=== PATIENT | male | born 1970 | race Caucasian/White ===

== ENCOUNTER 2018-05-25 05:03 | Inpatient (IN) | payer OTHER, MEDICAID ==
[~2018-05-25] VITALS: Ht 157.5 cm; Wt 72.6 kg
[2018-05-25] MEDS ORDERED: MORPHINE SULFATE 4 MG/ML CPJ (NOT FOR IM USE) IV STA (06:35)
[2018-05-25] MEDS ORDERED: ONDANSETRON HCL 4MG/2ML INJ IV ONE (07:00)
[2018-05-25 07:12] LABS: BASOPHILS % 0.8 % (0.0-2.0); HEMATOCRIT. 32.1 % (42.0-52.0); HEMOGLOBIN. 10.6 g/dL (14.0-18.0); LYMPHOCYTES % 23.8 % (20.0-50.0); MEAN CORPUSCULAR HEMOGLOBIN 28.8 pg (28.0-32.0); MEAN CORPUSCULAR VOLUME 87.4 fL (80.0-94.0); MONOCYTES % 9.6 % (2.0-8.0); NEUTROPHILS % 62.8 % (40.0-76.0); PLATELET 102 x1000/uL (130-400); RED BLOOD CELL COUNT 3.68 mill/uL (4.7-6.1); RED CELL DISTRIBUTION WIDTH 18.8 % (11.6-14.6)
[2018-05-25 07:17] LABS: INR 1.3; PROTHROMBIN TIME 12.8 sec (9.6-11.0)
[2018-05-25 07:24] LABS: CHLORIDE 108 mEq/L (98-107)
[2018-05-25 07:25] LABS: CLARITY URINE CLOUDY (CLEAR); COLOR URINE ORANGE (YELLOW); KETONES URINE TRACE (NEGATIVE); LEUKOCYTE ESTERASE URINE 1+ (NEGATIVE); NITRITE URINE POSITIVE (NEGATIVE); OCCULT BLOOD URINE NEGATIVE (NEGATIVE); PROTEIN URINE 1+ (NEGATIVE); SPECIFIC GRAVITY URINE 1.034 (1.005-1.030)
[2018-05-25 07:28] LABS: ETHANOL BLOOD < 10 mg/dL
[2018-05-25] MEDS ORDERED: CEFTRIAXONE 1 G PREMIX 50 ML IV ONE (07:45)
[2018-05-25] MEDS ORDERED: NA PHOS,M-B/NA PHOS,DI-BA ENEMA 118ML PR PRN (08:15)
[2018-05-25] MEDS ORDERED: DIPHENHYDRAMINE 50MG/ML VIAL IV PRN ×2 (08:15→18:45)
[2018-05-25] MEDS ORDERED: MAGNESIUM/ALUMINUM HYDROXIDE/SIMETHICONE 30ML UDC PO PRN ×2 (08:15→18:45)
[2018-05-25] MEDS ORDERED: ACETAMINOPHEN 325MG TABLET PO PRN ×2 (08:15→18:45)
[2018-05-25] MEDS ORDERED: CLONIDINE 0.1MG TABLET PO PRN ×2 (08:15→18:45)
[2018-05-25] MEDS ORDERED: ONDANSETRON HCL 4MG/2ML INJ IV PRN ×3 (08:15→18:45)
[2018-05-25] MEDS ORDERED: MORPHINE SULFATE 4 MG/ML CPJ (NOT FOR IM USE) IV PRN (08:15)
[2018-05-25] MEDS ORDERED: ACETAMINOPHEN 650MG SUPP PR PRN ×2 (08:15→18:45)
[2018-05-25] MEDS ORDERED: DOCUSATE SODIUM 100MG CAPSULE PO PRN (08:15)
[2018-05-25] MEDS ORDERED: LIDOCAINE HCL 1% 20ML VIAL (Pyxis) INJ ONE (08:17)
[2018-05-25] MEDS ORDERED: SODIUM BICARBONATE 4% (2.4MEQ) 5ML VIAL IV ONE (08:17)
[2018-05-25] MEDS: FUROSEMIDE 40MG/4ML VIAL IV SCH (13:50)
[2018-05-25] MEDS: THIAMINE HCL 100MG TABLET PO SCH (13:50)
[2018-05-25] MEDS: POTASSIUM CHLORIDE 20MEQ TABLET SR PO SCH (13:50)
[2018-05-25] MEDS ORDERED: CEFTRIAXONE 1 G PREMIX 50 ML IV SCH (14:00)
[2018-05-25] MEDS ORDERED: FOLIC ACID 1MG TABLET PO SCH (14:00)
[2018-05-25 14:25] LABS: *BENZODIAZEPINES SCREEN URINE NEGATIVE (NEGATIVE); *COCAINE SCREEN URINE NEGATIVE (NEGATIVE); METHADONE URINE SCREEN NEGATIVE (NEGATIVE); OPIATES URINE SCREEN NEGATIVE (NEGATIVE)
[2018-05-25 14:26] LABS: *AMPHETAMINES SCREEN URINE NEGATIVE (NEGATIVE); *BARBITURATES SCREEN URINE NEGATIVE (NEGATIVE); CANNABINOID URINE SCREEN NEGATIVE (NEGATIVE); PHENCYCLIDINE URINE SCREEN NEGATIVE (NEGATIVE)
[2018-05-25] MEDS ORDERED: ACETAMINOPHEN 650MG/20.3ML UDC GT PRN (18:45)
[2018-05-26] MEDS: SODIUM CHLORIDE 0.9% 1,000 ML IV SCH ×2 (03:26→11:11)
[2018-05-26 05:09] LABS: BASOPHILS % 0.8 % (0.0-2.0); HEMATOCRIT. 30.7 % (42.0-52.0); HEMOGLOBIN. 10.3 g/dL (14.0-18.0); LYMPHOCYTES % 16.2 % (20.0-50.0); MEAN CORPUSCULAR HEMOGLOBIN 29.2 pg (28.0-32.0); MEAN CORPUSCULAR VOLUME 87.5 fL (80.0-94.0); MEAN PLATELET VOLUME 8.8 fl (7.4-10.4); MONOCYTES % 10.4 % (2.0-8.0); NEUTROPHILS % 69.6 % (40.0-76.0); PLATELET 94 x1000/uL (130-400); RED BLOOD CELL COUNT 3.51 mill/uL (4.7-6.1); RED CELL DISTRIBUTION WIDTH 18.6 % (11.6-14.6)
[2018-05-26 05:16] LABS: CHLORIDE 109 mEq/L (98-107)
[2018-05-26 05:48] LABS: HDL CHOLESTEROL 53 mg/dL (40-59); LDL CHOLESTEROL 32 mg/dL (5-100)
[2018-05-26 08:00] VITALS: BP 99/70
[2018-05-26] MEDS: METOPROLOL TARTRATE 25MG TABLET PO SCH ×2 (09:00→21:00)
[2018-05-26] MEDS: FUROSEMIDE 40MG/4ML VIAL IV SCH (09:00)
[2018-05-26 10:08] VITALS: BP 99/67
[2018-05-26 12:00] VITALS: BP 100/61
[2018-05-26] MEDS: THIAMINE HCL 100MG TABLET PO SCH (12:14)
[2018-05-26] MEDS: POTASSIUM CHLORIDE 20MEQ TABLET SR PO SCH (13:15)
[2018-05-26] MEDS ORDERED: SODIUM CHLORIDE 0.9% INJ 3ML FLUSH IVF SCH (14:00)
[2018-05-26 16:01] VITALS: BP 95/56
[2018-05-26] MEDS ORDERED: LEVO500T2 MT (17:09)
[2018-05-26 20:00] VITALS: BP 102/61
[2018-05-26 21:44] VITALS: BP 102/61
[2018-05-27] MEDS ORDERED: CEFTRIAXONE 1 G PREMIX 50 ML IV SCH (03:00)
== END 2018-05-26 22:18 | disposition home or self-care (01) | DRG 280 ==
LOC: ER 05:03 → 6EST 07:55 → EDBEDREQTM 07:59 → EDBEDREQ 07:59 → ENRESERV 05-26 07:13
PROVIDERS: ADMIT Family Medicine; ATTEND Family Medicine
PROC: 0W9G3ZZ Drainage of Peritoneal Cavity, Percutaneous Approach (ICD-10-PCS; principal; 2018-05-25)
DX: K70.31 Alcoholic cirrhosis of liver with ascites (principal); D61.818 Other pancytopenia; E44.0 Moderate protein-calorie malnutrition; E11.9 Type 2 diabetes mellitus without complications; I10 Essential (primary) hypertension; K42.9 Umbilical hernia without obstruction or gangrene; D50.9 Iron deficiency anemia, unspecified; N39.0 Urinary tract infection, site not specified; Z68.29 Body mass index [BMI] 29.0-29.9, adult; Z71.41 Alcohol abuse counseling and surveillance of alcoholic; Z72.89 Other problems related to lifestyle
CPT/HCPCS: 36415; 49083; 80061; 80076; 80305; 80320; 82150; 82728; 83540; 83550; 88108; 88312; 93306; 96365; 96375; 99285; J0696; J1940; J2270; J2405; J3490; G0480

== ENCOUNTER 2018-07-30 09:40 | Emergency (ER) | payer MEDICAID ==
[~2018-07-30] VITALS: Ht 162.6 cm; Wt 60.0 kg
[~2018-07-30 09:40] MED LIST: LEVO500T2 MT
[2018-07-30 10:40] LABS: BASOPHILS % 0.4 % (0.0-2.0); EOSINOPHILS % 0.6 % (0.0-5.0); HEMATOCRIT. 34.2 % (42.0-52.0); HEMOGLOBIN. 11.4 g/dL (14.0-18.0); LYMPHOCYTES % 12.4 % (20.0-50.0); MEAN CORPUSCULAR HEMOGLOBIN 28.6 pg (28.0-32.0); MEAN CORPUSCULAR VOLUME 86.1 fL (80.0-94.0); MEAN PLATELET VOLUME 8.4 fl (7.4-10.4); MONOCYTES % 14.4 % (2.0-8.0); NEUTROPHILS % 72.2 % (40.0-76.0); PLATELET 127 x1000/uL (130-400); RED BLOOD CELL COUNT 3.97 mill/uL (4.7-6.1); RED CELL DISTRIBUTION WIDTH 17.2 % (11.6-14.6)
[2018-07-30 10:46] LABS: CHLORIDE 100 mEq/L (98-107)
[2018-07-30 10:47] LABS: INR 1.2; PROTHROMBIN TIME 12.5 sec (9.6-11.0)
[2018-07-30 10:50] LABS: ETHANOL BLOOD 99 mg/dL
[2018-07-30] MEDS ORDERED: LIDOCAINE HCL 1% 20ML VIAL (Pyxis) INJ ONE (11:15)
[2018-07-30] MEDS ORDERED: SODIUM BICARBONATE 4% (2.4MEQ) 5ML VIAL IV ONE (11:15)
[2018-07-30 14:58] VITALS: BP 119/67
== END 2018-07-30 15:01 | disposition home or self-care (01) ==
LOC: ER 09:40
DX: R18.8 Other ascites (principal); K74.60 Unspecified cirrhosis of liver; E87.1 Hypo-osmolality and hyponatremia; E11.9 Type 2 diabetes mellitus without complications; I10 Essential (primary) hypertension
CPT/HCPCS: 36415; 49083; 80053; 80320; 83690; 85025; 85610; 99285; J3490; Z7610; G0480

== ENCOUNTER 2018-08-15 09:01 | Emergency (ER) | payer MEDICAID ==
[~2018-08-15] VITALS: Ht 167.6 cm; Wt 74.0 kg
[2018-08-15 09:50] LABS: BASOPHILS % 1.3 % (0.0-2.0); EOSINOPHILS % 0.7 % (0.0-5.0); HEMATOCRIT. 32.2 % (42.0-52.0); HEMOGLOBIN. 10.9 g/dL (14.0-18.0); LYMPHOCYTES % 12.9 % (20.0-50.0); MEAN CORPUSCULAR HEMOGLOBIN 28.9 pg (28.0-32.0); MEAN CORPUSCULAR VOLUME 85.5 fL (80.0-94.0); MONOCYTES % 12.8 % (2.0-8.0); NEUTROPHILS % 72.3 % (40.0-76.0); PLATELET 118 x1000/uL (130-400); RED BLOOD CELL COUNT 3.77 mill/uL (4.7-6.1); RED CELL DISTRIBUTION WIDTH 17.7 % (11.6-14.6)
[2018-08-15 09:54] LABS: CHLORIDE 102 mEq/L (98-107)
[2018-08-15 09:55] LABS: INR 1.2; PROTHROMBIN TIME 12.2 sec (9.6-11.0)
[2018-08-15] MEDS ORDERED: SODIUM BICARBONATE 4% (2.4MEQ) 5ML VIAL IV ONE (10:23)
[2018-08-15] MEDS ORDERED: LIDOCAINE HCL 1% 20ML VIAL (Pyxis) INJ ONE (10:23)
[2018-08-15 14:50] VITALS: BP 110/66
== END 2018-08-15 15:03 | disposition home or self-care (01) ==
LOC: ER 09:01
DX: R18.8 Other ascites (principal); K76.9 Liver disease, unspecified; I10 Essential (primary) hypertension; E11.9 Type 2 diabetes mellitus without complications
CPT/HCPCS: 36415; 49083; 80053; 83690; 85025; 85610; 87070; 87205; 89050; 99285; J3490; Z7610

== ENCOUNTER 2018-09-08 16:18 | Emergency (ER) | payer MEDICAID | END 2018-09-08 19:24 | disposition left against medical advice (07) | LOC: ER 16:18 | DX: Z53.21 Procedure and treatment not carried out due to patient leaving prior to being seen by health care provider (principal) ==

== ENCOUNTER 2018-09-09 05:50 | Inpatient (IN) | payer OTHER, MEDICAID ==
[~2018-09-09] VITALS: Ht 160 cm; Wt 73.9 kg
[2018-09-09] MEDS ORDERED: FAMOTIDINE 20MG/2ML VIAL IV ONE (10:00)
[2018-09-09] MEDS ORDERED: MAGNESIUM/ALUMINUM HYDROXIDE/SIMETHICONE 30ML UDC PO ONE (10:00)
[2018-09-09] MEDS ORDERED: LIDOCAINE HCL 1% 20ML VIAL (Pyxis) INJ INJ STA (11:34)
[2018-09-09 12:16] LABS: BASOPHILS % 1.4 % (0.0-2.0); CHLORIDE 107 mEq/L (98-107); EOSINOPHILS % 0.8 % (0.0-5.0); HEMOGLOBIN. 11.1 g/dL (14.0-18.0); LYMPHOCYTES % 17.8 % (20.0-50.0); MEAN CORPUSCULAR HEMOGLOBIN 28.8 pg (28.0-32.0); MEAN CORPUSCULAR VOLUME 85.5 fL (80.0-94.0); MEAN PLATELET VOLUME 9.3 fl (7.4-10.4); MONOCYTES % 10.9 % (2.0-8.0); NEUTROPHILS % 69.1 % (40.0-76.0); PLATELET 94 x1000/uL (130-400); RED BLOOD CELL COUNT 3.86 mill/uL (4.7-6.1); RED CELL DISTRIBUTION WIDTH 18.3 % (11.6-14.6)
[2018-09-09 12:18] LABS: INR 1.3; PROTHROMBIN TIME 12.7 sec (9.6-11.0)
[2018-09-09] MEDS ORDERED: IOHEXOL-300 100 ML BOTTLE ONE (15:17)
[2018-09-09] MEDS ORDERED: ONDANSETRON HCL 4MG/2ML INJ IV PRN (16:00)
[2018-09-09] MEDS ORDERED: ACETAMINOPHEN 325MG TABLET PO PRN (16:00)
[2018-09-09] MEDS ORDERED: HYDROCODONE/ACETAMINOPHEN 5/325MG TABLET PO PRN (16:00)
[2018-09-09] MEDS ORDERED: SPIRONOLACTONE 50MG TABLET PO NR (16:08)
[2018-09-09] MEDS: KETOROLAC 30MG/ML VIAL IV PRN (16:22)
[2018-09-09 16:37] LABS: HEPATITIS B SURFACE ANTIGEN NEGATIVE
[2018-09-09 16:52] VITALS: BP 117/66
[2018-09-09 17:07] LABS: HEPATITIS A AB IGM NEGATIVE (NEGATIVE)
[2018-09-09 17:16] VITALS: BP 117/66
[2018-09-09 20:00] VITALS: BP 99/59
[2018-09-09] MEDS ORDERED: LORAZEPAM 2MG/ML CPJ IV PRN (20:15)
[2018-09-09] MEDS: FUROSEMIDE 40MG TABLET PO SCH (20:41)
[2018-09-10] VITALS: BP 107/65
[2018-09-10 04:00] VITALS: BP 106/66
[2018-09-10] MEDS: KETOROLAC 30MG/ML VIAL IV PRN (06:07)
[2018-09-10 07:03] LABS: BASOPHILS % 1.1 % (0.0-2.0); EOSINOPHILS % 1.8 % (0.0-5.0); HEMATOCRIT. 30.5 % (42.0-52.0); HEMOGLOBIN. 10.2 g/dL (14.0-18.0); LYMPHOCYTES % 19.8 % (20.0-50.0); MEAN CORPUSCULAR VOLUME 86.9 fL (80.0-94.0); MEAN PLATELET VOLUME 9.8 fl (7.4-10.4); MONOCYTES % 12.8 % (2.0-8.0); NEUTROPHILS % 64.5 % (40.0-76.0); PLATELET 89 x1000/uL (130-400); RED BLOOD CELL COUNT 3.51 mill/uL (4.7-6.1); RED CELL DISTRIBUTION WIDTH 18.9 % (11.6-14.6)
[2018-09-10 08:00] VITALS: BP 115/79
[2018-09-10 08:13] LABS: CHLORIDE 108 mEq/L (98-107)
[2018-09-10] MEDS: FUROSEMIDE 40MG TABLET PO SCH (08:27)
[2018-09-10] MEDS ORDERED: SODIUM BICARBONATE 4% (2.4MEQ) 5ML VIAL IV ONE (08:43)
[2018-09-10] MEDS ORDERED: LIDOCAINE HCL 1% 20ML VIAL (Pyxis) INJ ONE (08:43)
[2018-09-10] MEDS ORDERED: SPIRONOLACTONE 50MG TABLET PO SCH (09:00)
[2018-09-10 10:48] VITALS: BP 117/82
[2018-09-10 11:59] VITALS: BP 105/65
== END 2018-09-10 13:11 | disposition home or self-care (01) ==
LOC: ER 05:50 → EDBEDREQTM 14:14 → EDBEDREQ 14:14 → 6EST 16:01 → ENRESERV 16:01
PROVIDERS: ADMIT Internal Medicine; ATTEND Internal Medicine
PROC: 0W9G3ZZ Drainage of Peritoneal Cavity, Percutaneous Approach (ICD-10-PCS; principal; 2018-09-10)
DX: K74.60 Unspecified cirrhosis of liver (principal); E43 Unspecified severe protein-calorie malnutrition; D69.6 Thrombocytopenia, unspecified; I24.9 Acute ischemic heart disease, unspecified; K76.6 Portal hypertension; R16.1 Splenomegaly, not elsewhere classified; I85.10 Secondary esophageal varices without bleeding; K42.9 Umbilical hernia without obstruction or gangrene; F10.10 Alcohol abuse, uncomplicated; R18.8 Other ascites; D64.9 Anemia, unspecified; I86.4 Gastric varices; Z68.28 Body mass index [BMI] 28.0-28.9, adult; Z79.899 Other long term (current) drug therapy; Z71.41 Alcohol abuse counseling and surveillance of alcoholic
CPT/HCPCS: 36415; 49083; 74177; 80048; 84484; 86705; 86709; 86803; 87075; 87340; 93005; 93971; 96374; 99285; J1885; J3490; Q9967

== ENCOUNTER 2019-05-08 07:57 | Emergency (ER) | payer MEDICAID ==
[~2019-05-08] VITALS: Ht 162.6 cm; Wt 89.0 kg
[2019-05-08 08:44] LABS: BASOPHILS % 0.3 % (0.0-2.0); EOSINOPHILS % 2.5 % (0.0-5.0); HEMATOCRIT. 28.5 % (42.0-52.0); HEMOGLOBIN. 9.4 g/dL (14.0-18.0); LYMPHOCYTES % 15.1 % (20.0-50.0); MEAN CORPUSCULAR HEMOGLOBIN 29.1 pg (28.0-32.0); MEAN CORPUSCULAR VOLUME 87.7 fL (80.0-94.0); MEAN PLATELET VOLUME 8.9 fl (7.4-10.4); NEUTROPHILS % 68.1 % (40.0-76.0); PLATELET 66 x1000/uL (130-400); RED BLOOD CELL COUNT 3.25 mill/uL (4.7-6.1); RED CELL DISTRIBUTION WIDTH 19.9 % (11.6-14.6)
[2019-05-08 08:51] LABS: CHLORIDE 108 mEq/L (98-107)
[2019-05-08 08:58] LABS: INR 1.2; PROTHROMBIN TIME 12.8 sec (9.6-11.0)
[2019-05-08] MEDS ORDERED: LIDOCAINE HCL 1% 20ML VIAL (Pyxis) INJ ONE (10:13)
[2019-05-08] MEDS ORDERED: SODIUM BICARBONATE 4% (2.4MEQ) 5ML VIAL IV ONE (10:14)
[2019-05-08 11:59] VITALS: BP 121/74
== END 2019-05-08 12:00 | disposition home or self-care (01) ==
LOC: ER 07:57
DX: K70.31 Alcoholic cirrhosis of liver with ascites (principal)
CPT/HCPCS: 36415; 49083; 80053; 83690; 85025; 85610; 87070; 87075; 87205; 89050; 99285; J3490; Z7610

== ENCOUNTER 2019-05-31 05:30 | Emergency (ER) | payer MEDICAID ==
[~2019-05-31] VITALS: Ht 160 cm; Wt 74.0 kg
[2019-05-31 06:35] LABS: BASOPHILS % 1.2 % (0.0-2.0); EOSINOPHILS % 0.6 % (0.0-5.0); HEMATOCRIT. 28.3 % (42.0-52.0); HEMOGLOBIN. 9.4 g/dL (14.0-18.0); LYMPHOCYTES % 8.9 % (20.0-50.0); MEAN CORPUSCULAR HEMOGLOBIN 28.9 pg (28.0-32.0); MEAN CORPUSCULAR VOLUME 86.8 fL (80.0-94.0); MEAN PLATELET VOLUME 8.4 fl (7.4-10.4); MONOCYTES % 12.3 % (2.0-8.0); PLATELET 134 x1000/uL (130-400); RED BLOOD CELL COUNT 3.26 mill/uL (4.7-6.1); RED CELL DISTRIBUTION WIDTH 18.4 % (11.6-14.6)
[2019-05-31 06:47] LABS: INR 1.2; PARTIAL THROMBOPLASTIN TIME 28.5 sec (23.4-31.0); PROTHROMBIN TIME 12.8 sec (9.6-11.0)
[2019-05-31] MEDS ORDERED: SODIUM BICARBONATE 4% (2.4MEQ) 5ML VIAL IV ONE (09:12)
[2019-05-31] MEDS ORDERED: LIDOCAINE HCL 1% 20ML VIAL (Pyxis) INJ ONE (09:12)
[2019-05-31 11:02] VITALS: BP 105/62
== END 2019-05-31 11:36 | disposition home or self-care (01) ==
LOC: ER 05:30
DX: R18.8 Other ascites (principal); I10 Essential (primary) hypertension; D64.9 Anemia, unspecified; F10.20 Alcohol dependence, uncomplicated; Y90.0 Blood alcohol level of less than 20 mg/100 ml
CPT/HCPCS: 36415; 49083; 85025; 85610; 85730; 99285; J3490; Z7610

== ENCOUNTER 2019-07-26 10:23 | Emergency (ER) | payer MEDICAID ==
[~2019-07-26] VITALS: Ht 157.5 cm; Wt 80.0 kg
[2019-07-26 11:29] LABS: BASOPHILS % 0.9 % (0.0-2.0); HEMATOCRIT. 29.5 % (42.0-52.0); HEMOGLOBIN. 9.9 g/dL (14.0-18.0); LYMPHOCYTES % 14.9 % (20.0-50.0); MEAN CORPUSCULAR HEMOGLOBIN 29.2 pg (28.0-32.0); MEAN CORPUSCULAR VOLUME 86.7 fL (80.0-94.0); MEAN PLATELET VOLUME 8.9 fl (7.4-10.4); MONOCYTES % 13.3 % (2.0-8.0); NEUTROPHILS % 68.9 % (40.0-76.0); PLATELET 79 x1000/uL (130-400); RED CELL DISTRIBUTION WIDTH 20.2 % (11.6-14.6)
[2019-07-26 11:37] LABS: INR 1.3; PARTIAL THROMBOPLASTIN TIME 34.7 sec (23.4-31.0); PROTHROMBIN TIME 13.5 sec (9.6-11.0)
[2019-07-26] MEDS ORDERED: LIDOCAINE HCL 1% 20ML VIAL (Pyxis) INJ ONE (11:57)
[2019-07-26] MEDS ORDERED: SODIUM BICARBONATE 4% (2.4MEQ) 5ML VIAL IV ONE (11:57)
[2019-07-26 14:22] VITALS: BP 107/62
== END 2019-07-26 14:23 | disposition home or self-care (01) ==
LOC: ER 10:23
DX: R18.8 Other ascites (principal); I10 Essential (primary) hypertension; D61.818 Other pancytopenia
CPT/HCPCS: 36415; 49083; 85025; 85610; 85730; 99285; J3490; Z7610

== ENCOUNTER 2019-09-25 09:10 | Emergency (ER) | payer MEDICAID ==
[~2019-09-25] VITALS: Ht 157.5 cm; Wt 78.0 kg
[2019-09-25 09:57] LABS: BASOPHILS % 2.9 % (0.0-2.0); EOSINOPHILS % 1.5 % (0.0-5.0); HEMATOCRIT. 26.3 % (42.0-52.0); HEMOGLOBIN. 8.8 g/dL (14.0-18.0); LYMPHOCYTES % 15.6 % (20.0-50.0); MEAN CORPUSCULAR HEMOGLOBIN 30.2 pg (28.0-32.0); MEAN CORPUSCULAR VOLUME 90.9 fL (80.0-94.0); MEAN PLATELET VOLUME 8.6 fl (7.4-10.4); MONOCYTES % 11.9 % (2.0-8.0); NEUTROPHILS % 68.1 % (40.0-76.0); PLATELET 80 x1000/uL (130-400); RED CELL DISTRIBUTION WIDTH 17.2 % (11.6-14.6)
[2019-09-25 10:04] LABS: CHLORIDE 105 mEq/L (98-107)
[2019-09-25 10:06] LABS: INR 1.3; PROTHROMBIN TIME 13.8 sec (9.6-11.0)
[2019-09-25] MEDS ORDERED: SODIUM BICARBONATE 4% (2.4MEQ) 5ML VIAL IV ONE (11:52)
[2019-09-25] MEDS ORDERED: LIDOCAINE HCL 1% 20ML VIAL (Pyxis) INJ ONE (11:52)
[2019-09-25 13:06] VITALS: BP 102/63
== END 2019-09-25 15:45 | disposition home or self-care (01) ==
LOC: ER 09:10
DX: R18.8 Other ascites (principal); K74.60 Unspecified cirrhosis of liver
CPT/HCPCS: 36415; 49083; 80053; 85025; 85610; 93005; 99285; J3490; Z7610

== ENCOUNTER 2019-10-02 12:02 | Emergency (ER) | payer MEDICAID ==
[~2019-10-02] VITALS: Ht 157.5 cm; Wt 77.0 kg
[2019-10-02 12:59] LABS: HEMATOCRIT. 25.7 % (42.0-52.0); HEMOGLOBIN. 8.8 g/dL (14.0-18.0); MEAN CORPUSCULAR HEMOGLOBIN 30.5 pg (28.0-32.0); MEAN CORPUSCULAR VOLUME 89.3 fL (80.0-94.0); PLATELET 85 x1000/uL (130-400); RED BLOOD CELL COUNT 2.88 mill/uL (4.7-6.1); RED CELL DISTRIBUTION WIDTH 16.9 % (11.6-14.6)
[2019-10-02 13:05] LABS: CHLORIDE 95 mEq/L (98-107)
[2019-10-02 13:14] LABS: INR 1.3; PROTHROMBIN TIME 13.2 sec (9.6-11.0)
[2019-10-02] MEDS ORDERED: LIDOCAINE HCL 1% 20ML VIAL (Pyxis) INJ ONE (13:39)
[2019-10-02] MEDS ORDERED: SODIUM BICARBONATE 4% (2.4MEQ) 5ML VIAL IV ONE (13:39)
[2019-10-02 14:01] LABS: PLATELET ESTIMATE SLIGHTLY DECREASED
[2019-10-02 15:59] VITALS: BP 119/73
== END 2019-10-02 16:06 | disposition home or self-care (01) ==
LOC: ER 12:02
DX: K70.31 Alcoholic cirrhosis of liver with ascites (principal)
CPT/HCPCS: 36415; 49083; 80053; 85025; 85610; 93005; 99285; J3490; Z7610

== ENCOUNTER 2019-10-16 09:11 | Inpatient (IN) | payer MEDICAID, OTHER ==
[~2019-10-16] VITALS: Ht 157.5 cm; Wt 72.6 kg
[2019-10-16] MEDS ORDERED: MORPHINE SULFATE 4 MG/ML CPJ (NOT FOR IM USE) IV STA (10:11)
[2019-10-16 10:28] LABS: CHLORIDE 99 mEq/L (98-107)
[2019-10-16 10:31] LABS: BASOPHILS % 2.3 % (0.0-2.0); EOSINOPHILS % 0.8 % (0.0-5.0); HEMATOCRIT. 27.6 % (42.0-52.0); LYMPHOCYTES % 7.5 % (20.0-50.0); MEAN CORPUSCULAR HEMOGLOBIN 29.5 pg (28.0-32.0); MEAN CORPUSCULAR VOLUME 90.6 fL (80.0-94.0); MEAN PLATELET VOLUME 8.3 fl (7.4-10.4); NEUTROPHILS % 76.4 % (40.0-76.0); PLATELET 128 x1000/uL (130-400); RED BLOOD CELL COUNT 3.04 mill/uL (4.7-6.1); RED CELL DISTRIBUTION WIDTH 17.1 % (11.6-14.6)
[2019-10-16 10:42] LABS: INR 1.2; PROTHROMBIN TIME 12.6 sec (9.6-11.0)
[2019-10-16 11:31] LABS: CLARITY URINE CLEAR (CLEAR); COLOR URINE YELLOW (YELLOW); KETONES URINE NEGATIVE (NEGATIVE); LEUKOCYTE ESTERASE URINE NEGATIVE (NEGATIVE); NITRITE URINE NEGATIVE (NEGATIVE); OCCULT BLOOD URINE NEGATIVE (NEGATIVE); PH URINE 6.5 (4.5-8.0); PROTEIN URINE NEGATIVE (NEGATIVE); UROBILINOGEN URINE 0.2 E.U./dL (0.2-1.0)
[2019-10-16] MEDS ORDERED: ACETAMINOPHEN 325MG TABLET PO PRN (14:00)
[2019-10-16] MEDS ORDERED: CLONIDINE 0.1MG TABLET PO PRN (14:00)
[2019-10-16] MEDS ORDERED: GUAIFENESIN 200MG/10ML SUGAR FREE UDC PO PRN (14:00)
[2019-10-16] MEDS ORDERED: ONDANSETRON HCL 4MG/2ML INJ IV PRN (14:00)
[2019-10-16] MEDS ORDERED: HYDROCODONE/ACETAMINOPHEN 5/325MG TABLET PO PRN (14:00)
[2019-10-16] MEDS ORDERED: DOCUSATE SODIUM 100MG CAPSULE PO PRN (14:00)
[2019-10-16 14:16] VITALS: BP 115/72
[2019-10-16 14:19] VITALS: BP 115/75
[2019-10-16 16:33] VITALS: BP 111/68
[2019-10-16 18:00] VITALS: BP 110/58
[2019-10-16 20:00] VITALS: BP 104/64
[2019-10-16 22:00] VITALS: BP 91/65
[2019-10-17] VITALS (7 sets, daily range): BP systolic 94–138; BP diastolic 54–71
[2019-10-17 07:15] LABS: BASOPHILS % 2.5 % (0.0-2.0); EOSINOPHILS % 1.4 % (0.0-5.0); HEMATOCRIT. 26.9 % (42.0-52.0); HEMOGLOBIN. 8.9 g/dL (14.0-18.0); LYMPHOCYTES % 12.5 % (20.0-50.0); MEAN CORPUSCULAR HEMOGLOBIN 29.7 pg (28.0-32.0); MEAN PLATELET VOLUME 8.6 fl (7.4-10.4); MONOCYTES % 11.6 % (2.0-8.0); PLATELET 118 x1000/uL (130-400); RED BLOOD CELL COUNT 2.99 mill/uL (4.7-6.1); RED CELL DISTRIBUTION WIDTH 17.4 % (11.6-14.6)
[2019-10-17 07:28] LABS: CHLORIDE 105 mEq/L (98-107)
[2019-10-17] MEDS ORDERED: LIDOCAINE HCL 1% 20ML VIAL (Pyxis) INJ ONE (08:46)
[2019-10-17] MEDS ORDERED: SODIUM BICARBONATE 4% (2.4MEQ) 5ML VIAL IV ONE (08:47)
[2019-10-23] MEDS ORDERED: FURO-151 PO (11:17)
[2019-10-23] MEDS ORDERED: LACT10SO7 PO (11:17)
== END 2019-10-17 11:33 | disposition home or self-care (01) | DRG 280 ==
LOC: ER 09:11 → 3WST 12:22 → ENRESERV 13:10
PROVIDERS: ADMIT Hospitalist; ATTEND Hospitalist
PROC: 0W9G3ZZ Drainage of Peritoneal Cavity, Percutaneous Approach (ICD-10-PCS; principal; 2019-10-17)
DX: K70.31 Alcoholic cirrhosis of liver with ascites (principal); E87.1 Hypo-osmolality and hyponatremia; D63.8 Anemia in other chronic diseases classified elsewhere; D69.6 Thrombocytopenia, unspecified; R74.0 Nonspecific elevation of levels of transaminase and lactic acid dehydrogenase [LDH]; E43 Unspecified severe protein-calorie malnutrition; F10.21 Alcohol dependence, in remission; Z68.29 Body mass index [BMI] 29.0-29.9, adult
CPT/HCPCS: 36415; 49083; 71045; 76705; 80053; 81003; 85025; 93005; 93970; 99285; J2270; J2405; J3490

== ENCOUNTER 2019-10-21 12:44 | Inpatient (IN) | payer MEDICAID, OTHER ==
[~2019-10-21] VITALS: Ht 157.5 cm; Wt 69.9 kg
[2019-10-21] MEDS ORDERED: LIDOCAINE HCL 1% 20ML VIAL (Pyxis) INJ INFIL STA (14:07)
[2019-10-21 14:45] LABS: BASOPHILS % 0.9 % (0.0-2.0); EOSINOPHILS % 0.7 % (0.0-5.0); HEMATOCRIT. 26.9 % (42.0-52.0); HEMOGLOBIN. 9.2 g/dL (14.0-18.0); MEAN CORPUSCULAR HEMOGLOBIN 30.3 pg (28.0-32.0); MEAN CORPUSCULAR VOLUME 88.8 fL (80.0-94.0); MEAN PLATELET VOLUME 7.8 fl (7.4-10.4); MONOCYTES % 14.9 % (2.0-8.0); NEUTROPHILS % 74.5 % (40.0-76.0); PLATELET 135 x1000/uL (130-400); RED BLOOD CELL COUNT 3.03 mill/uL (4.7-6.1); RED CELL DISTRIBUTION WIDTH 17.5 % (11.6-14.6)
[2019-10-21 14:56] LABS: INR 1.1; PARTIAL THROMBOPLASTIN TIME 30.2 sec (23.4-31.0)
[2019-10-21 15:03] LABS: CHLORIDE 96 mEq/L (98-107)
[2019-10-21 16:07] LABS: CLARITY URINE CLEAR (CLEAR); COLOR URINE YELLOW (YELLOW); KETONES URINE NEGATIVE (NEGATIVE); LEUKOCYTE ESTERASE URINE NEGATIVE (NEGATIVE); NITRITE URINE NEGATIVE (NEGATIVE); OCCULT BLOOD URINE NEGATIVE (NEGATIVE); PROTEIN URINE NEGATIVE (NEGATIVE); SPECIFIC GRAVITY URINE 1.006 (1.005-1.030); UROBILINOGEN URINE 0.2 E.U./dL (0.2-1.0)
[2019-10-21] MEDS ORDERED: ACETAMINOPHEN 325MG TABLET PO PRN (18:45)
[2019-10-21] MEDS ORDERED: ONDANSETRON HCL 4MG/2ML INJ IV PRN (18:45)
[2019-10-22] VITALS (7 sets, daily range): BP systolic 94–117; BP diastolic 50–72
[2019-10-22] MEDS ORDERED: FURO-151 PO (01:55)
[2019-10-22] MEDS ORDERED: POTA20LI52 PO (01:55)
[2019-10-22 07:30] LABS: HEMATOCRIT. 26.2 % (42.0-52.0); MEAN CORPUSCULAR HEMOGLOBIN 30.3 pg (28.0-32.0); MEAN CORPUSCULAR VOLUME 88.5 fL (80.0-94.0); MEAN PLATELET VOLUME 8.6 fl (7.4-10.4); PLATELET 118 x1000/uL (130-400); RED BLOOD CELL COUNT 2.97 mill/uL (4.7-6.1); RED CELL DISTRIBUTION WIDTH 16.9 % (11.6-14.6)
[2019-10-22 07:44] LABS: CHLORIDE 99 mEq/L (98-107)
[2019-10-22] MEDS ORDERED: LIDOCAINE HCL 1% 20ML VIAL (Pyxis) INJ ONE (08:37)
[2019-10-22] MEDS ORDERED: SODIUM BICARBONATE 4% (2.4MEQ) 5ML VIAL IV ONE (08:37)
[2019-10-22 12:29] LABS: PLATELET ESTIMATE SLIGHTLY DECREASED
[2019-10-22] MEDS: LACTULOSE 20G/30ML UDC PO SCH ×2 (15:35→21:54)
[2019-10-22] MEDS: HYDROCODONE/ACETAMINOPHEN 5/325MG TABLET PO PRN (21:54)
[2019-10-23 00:14] VITALS: BP 105/68
[2019-10-23 04:00] VITALS: BP 110/54
[2019-10-23] MEDS: LACTULOSE 20G/30ML UDC PO SCH (06:35)
[2019-10-23 08:00] VITALS: BP 100/62
[2019-10-23 09:00] LABS: EOSINOPHILS % 0.9 % (0.0-5.0); LYMPHOCYTES % 7.9 % (20.0-50.0); MEAN CORPUSCULAR HEMOGLOBIN 29.4 pg (28.0-32.0); MEAN CORPUSCULAR VOLUME 89.1 fL (80.0-94.0); MEAN PLATELET VOLUME 8.5 fl (7.4-10.4); NEUTROPHILS % 78.2 % (40.0-76.0); PLATELET 142 x1000/uL (130-400); RED BLOOD CELL COUNT 3.64 mill/uL (4.7-6.1); RED CELL DISTRIBUTION WIDTH 16.5 % (11.6-14.6)
[2019-10-23 09:02] LABS: CHLORIDE 101 mEq/L (98-107)
[2019-10-23 09:12] LABS: HEMATOCRIT. 32.5 % (42.0-52.0); HEMOGLOBIN. 10.7 g/dL (14.0-18.0)
[2019-10-23] MEDS: HYDROCODONE/ACETAMINOPHEN 5/325MG TABLET PO PRN (09:17)
[2019-10-23] MEDS ORDERED: LACT10SO7 PO (11:17)
[2019-10-23] MEDS ORDERED: FURO-151 PO (11:17)
[2019-10-23 11:56] VITALS: BP 114/72
[2019-10-23 12:00] VITALS: BP 114/72
== END 2019-10-23 12:40 | disposition home or self-care (01) | DRG 280 ==
LOC: ER 12:52 → 6WST 18:26 → EDBEDREQTM 19:31 → EDBEDREQSVC 20:21 → EDBEDREQTM 20:21 → ENRESERV 21:58
PROVIDERS: ADMIT Internal Medicine; ATTEND Internal Medicine
PROC: 0W9G3ZZ Drainage of Peritoneal Cavity, Percutaneous Approach (ICD-10-PCS; principal; 2019-10-22)
DX: K70.31 Alcoholic cirrhosis of liver with ascites (principal); E11.9 Type 2 diabetes mellitus without complications; D61.818 Other pancytopenia; E87.1 Hypo-osmolality and hyponatremia; E88.09 Other disorders of plasma-protein metabolism, not elsewhere classified; I10 Essential (primary) hypertension; E87.70 Fluid overload, unspecified; E72.20 Disorder of urea cycle metabolism, unspecified; I89.8 Other specified noninfective disorders of lymphatic vessels and lymph nodes; R74.8 Abnormal levels of other serum enzymes; D64.9 Anemia, unspecified; Z79.899 Other long term (current) drug therapy
CPT/HCPCS: 36415; 49083; 80053; 81003; 82140; 83735; 85025; 87075; 93005; 93970; 99285; J3490